=== PATIENT | male | born 1945 | race Caucasian/White ===

== ENCOUNTER 2020-03-06 13:55 | Emergency (ER) | payer MEDICARE ==
--- NOTE | 2020-03-06 13:52 | US ---
EXAMINATION TYPE: US venous doppler duplex LE LT DATE OF EXAM: 03/06/2020 1:41 PM COMPARISON: NONE CLINICAL HISTORY: M79.605 Left leg pain. SIDE PERFORMED: Left TECHNIQUE: The lower extremity deep venous system is examined utilizing real time linear array sonog benjamin with graded compression, doppler sonography and color-flow sonography. VESSELS IMAGED: Common Femoral Vein Deep Femoral Vein Greater Saphenous Vein * Femoral Vein Popliteal Vein Small Saphenous Vein * Proximal Calf Veins (* superficial vessels) Left Leg: Positive for DVT from the left CFV to the proximal calf veins IMPRESSION: Positive for DVT as noted above.
[2020-03-06 14:02] VITALS: BP 126/84; PULSE 65; RESP 18; TEMP 98.5
--- NOTE | 2020-03-06 14:47 | ED ---
General Adult HPI - General Chief complaint: Extremity Injury, Lower Stated complaint: Blood Clot Time Seen by Provider: 03/06/20 14:06 Source: patient, RN notes reviewed Mode of arrival: wheelchair Limitations: no limitations - History of Present Illness Initial comments: This is a 74-year-old male who presents from ultrasound with complaints of a blood clot left leg. He has a history of blood clots in right leg the past. He has some pain and swelling to left leg that was noted today he did obtain ultrasound does show evidence of a DVT. He denies any chest pain shots of breath fevers chills sweats or other symptoms. He states his been swelling for about 3 days. He does state he is more sedentary than usual because of the current pandemic. - Related Data Previous Rx's Medication Instructions Recorded Rivaroxaban [Xarelto] 15 mg PO BID #42 tab 03/06/20 Allergies Allergy/AdvReac Type Severity Reaction Status Date / Time codeine Allergy Nausea & Verified 03/06/20 14:02 Vomiting & Diarrhea Review of Systems ROS Statement: Those systems with pertinent positive or pertinent negative responses have been documented in the HPI. ROS Other: All systems not noted in ROS Statement are negative. Past Medical History Past Medical History: Cancer, Hyperlipidemia, Hypertension Additional Past Medical History / Comment(s): colon cancer History of Any Multi-Drug Resistant Organisms: None Reported Past Surgical History: Bowel Resection, Joint Replacement Additional Past Surgical History / Comment(s): rt knee Past Psychological History: Depression Smoking Status: Never smoker Past Alcohol Use History: None Reported Past Drug Use History: None Reported General Exam - General Exam Comments Initial Comments: This is a well-developed well-nourished awake alert oriented 3 male Limitations: no limitations General appearance: alert, in no apparent distress Head exam: Present: atraumatic, normocephalic, normal inspection Eye exam: Present: normal appearance, PERRL, EOMI. Absent: scleral icterus, conjunctival injection, periorbital swelling ENT exam: Present: normal exam, mucous membranes moist Neck exam: Present: normal inspection. Absent: tenderness, meningismus, lymphadenopathy Respiratory exam: Present: normal lung sounds bilaterally. Absent: respiratory distress, wheezes, rales, rhonchi, stridor Cardiovascular Exam: Present: regular rate, normal rhythm, normal heart sounds. Absent: systolic murmur, diastolic murmur, rubs, gallop, clicks GI/Abdominal exam: Present: soft, normal bowel sounds. Absent: distended, tenderness, guarding, rebound, rigid Extremities exam: Present: full ROM, normal capillary refill, other (Swelling noted to the left calf but no definite Homans sign or tenderness. No palpable cords.). Absent: tenderness, pedal edema, joint swelling, calf tenderness Back exam: Present: normal inspection Neurological exam: Present: alert, oriented X3, CN II-XII intact Psychiatric exam: Present: normal affect, normal mood Skin exam: Present: warm, dry, intact, normal color. Absent: rash Course Vital Signs 03/06/20 13:58 Temperature 98.5 F Pulse Rate 65 Respiratory 18 Rate Blood Pressure 126/84 O2 Sat by Pulse 98 Oximetry Medical Decision Making - Medical Decision Making I did discuss the findings with Dr. Ghosh patient was given a sample of Xarelto he will be placed on the same he is a follow-up next week for reevaluation we did discuss return parameters. - Radiology Data Radiology results: report reviewed (Did review the imaging and report patient is positive for a DVT present. Please see the Complete report), image reviewed Disposition Clinical Impression: Left leg DVT Disposition: HOME SELF-CARE Condition: Good Instructions (If sedation given, give patient instructions): Deep Vein Thrombosis (ED), Leg Edema (ED), Deep Vein Thrombosis Prevention (ED) Prescriptions: Rivaroxaban [Xarelto] 15 mg PO BID #42 tab Is patient prescribed a controlled substance at d/c from ED?: No Referrals: Marlene Ghosh MD [Primary Care Provider] - 1-2 days
== END 2020-03-06 15:15 | disposition home or self-care (01) ==
LOC: EC 13:55
DX: I82.402 Acute embolism and thrombosis of unspecified deep veins of left lower extremity (principal); Z88.5 Allergy status to narcotic agent; Z85.038 Personal history of other malignant neoplasm of large intestine; Z96.651 Presence of right artificial knee joint
CPT/HCPCS: 99283

== ENCOUNTER 2020-04-12 14:23 | Emergency (ER) | payer MEDICARE ==
[2020-04-12 14:33] VITALS: TEMP 98.3
--- NOTE | 2020-04-12 14:54 | ED ---
General Adult HPI - General Chief complaint: Urogenital Stated complaint: Blood in Urine/ L Leg Swelling Time Seen by Provider: 04/12/20 14:34 Source: patient, RN notes reviewed, old records reviewed Mode of arrival: ambulatory Limitations: no limitations - History of Present Illness Initial comments: 74-year-old male presenting with hematuria. Patient was placed on Xarelto approximately one month ago with left leg DVT. He states his leg has been swollen but has not worsened. He denies chest pain or dyspnea. He is presenting stating that approximately a week ago he had some pink urine and then yesterday had an episode of more significant bright red hematuria. Denies clots. He denies any pain with urination. He denies urinary frequency. Denies flank pain. Denies fever. No vomiting. He states he is able to pass his urine normally. no Abdominal pain. - Related Data Previous Rx's Medication Instructions Recorded Rivaroxaban [Xarelto] 15 mg PO BID #42 tab 03/06/20 Cephalexin [Keflex] 500 mg PO Q6HR 10 Days #28 cap 04/12/20 Allergies Allergy/AdvReac Type Severity Reaction Status Date / Time codeine Allergy Nausea & Verified 04/12/20 14:33 Vomiting & Diarrhea Review of Systems ROS Statement: Those systems with pertinent positive or pertinent negative responses have been documented in the HPI. ROS Other: All systems not noted in ROS Statement are negative. Past Medical History Past Medical History: Cancer, Hyperlipidemia, Hypertension Additional Past Medical History / Comment(s): colon cancer, blood clot History of Any Multi-Drug Resistant Organisms: None Reported Past Surgical History: Bowel Resection, Joint Replacement Additional Past Surgical History / Comment(s): rt knee Past Psychological History: Depression Smoking Status: Never smoker Past Alcohol Use History: None Reported Past Drug Use History: None Reported General Exam Limitations: no limitations General appearance: alert, in no apparent distress Head exam: Present: atraumatic, normocephalic Eye exam: Present: normal appearance, PERRL ENT exam: Present: normal exam Neck exam: Present: normal inspection. Absent: tenderness, meningismus Respiratory exam: Present: normal lung sounds bilaterally. Absent: respiratory distress, wheezes Cardiovascular Exam: Present: regular rate, normal rhythm GI/Abdominal exam: Present: soft. Absent: distended, tenderness, guarding Extremities exam: Present: pedal edema, other (Left leg, swollen compared to the right, history of known DVT) Back exam: Absent: CVA tenderness (R), CVA tenderness (L) Neurological exam: Present: alert, oriented X3, CN II-XII intact. Absent: motor sensory deficit Psychiatric exam: Present: normal affect, normal mood Skin exam: Present: warm, dry, intact Course Vital Signs 04/12/20 14:28 Temperature 98.3 F Pulse Rate 61 Respiratory 18 Rate Blood Pressure 176/99 O2 Sat by Pulse 98 Oximetry Medical Decision Making - Medical Decision Making 74-year-old male with hematuria. Urinalysis showing greater than 182 red cells. Urine culture pending. Patient is otherwise well-appearing. He is given close urology follow-up. He was started on an antibiotic Keflex. He is given strict return parameters and will monitor his urine closely. He will return with urinary retention. He will return with fever or new symptoms. - Lab Data Lab Results 04/12/20 Range/Units 15:07 Urine Color Red Urine Appearance Cloudy (Clear) Urine pH 5.5 (5.0-8.0) Ur Specific [place] 1.022 (1.001-1.035) Urine Protein 2+ H (Negative) Urine Glucose (UA) Negative (Negative) Urine Ketones Trace H (Negative) Urine Blood Large H (Negative) Urine Nitrite Negative (Negative) Urine Bilirubin Negative (Negative) Urine Urobilinogen 2.0 (<2.0) mg/dL Ur Leukocyte Esterase Small H (Negative) Urine RBC >182 H (0-5) /hpf Urine WBC 38 H (0-5) /hpf Urine Mucus Occasional H (None) /hpf Disposition Clinical Impression: Gross hematuria, UTI (urinary tract infection) Disposition: HOME SELF-CARE Condition: Fair Instructions (If sedation given, give patient instructions): Urinary Tract Infection in Men (ED), Hematuria (ED) Prescriptions: Cephalexin [Keflex] 500 mg PO Q6HR 10 Days #28 cap Is patient prescribed a controlled substance at d/c from ED?: No Referrals: Marlene Ghosh MD [Primary Care Provider] - 1-2 days Martir Hull MD [STAFF PHYSICIAN] - 1-2 days Time of Disposition: 16:08
[2020-04-12 15:43] LABS: Appearance,Urine Cloudy (Clear); Bilirubin,Urine Negative (Negative); Blood,Urine Large (Negative); Color,Urine Red; Glucose,Urine (UA) Negative (Negative); Ketones,Urine Trace (Negative); Leukocyte Esterase,Urine Small (Negative); Mucus,Urine Occasional /hpf; Nitrite,Urine Negative (Negative); PH, Urine 5.5 (5.0-8.0); Protein,Urine 2+ (Negative); RBC,Urine >182 /hpf (0-5); Specific Gravity,Urine 1.022 (1.001-1.035); WBC,Urine 38 /hpf (0-5)
[2020-04-12 16:46] VITALS: BP 165/72; PULSE 82; RESP 20
== END 2020-04-12 16:45 | disposition home or self-care (01) ==
LOC: EC 14:23
DX: N39.0 Urinary tract infection, site not specified (principal); Z79.01 Long term (current) use of anticoagulants; Z88.5 Allergy status to narcotic agent; Z85.038 Personal history of other malignant neoplasm of large intestine; Z96.651 Presence of right artificial knee joint; Z86.718 Personal history of other venous thrombosis and embolism
CPT/HCPCS: 81001; 87086; 99284

== ENCOUNTER → 2024-09-11 | Outpatient (CLI) | payer MEDICARE ==
--- NOTE | 2024-09-11 16:26 | US ---
EXAMINATION TYPE: US venous doppler duplex LE LT DATE OF EXAM: 09/11/2024 4:14 PM COMPARISON: 03/06/2020 CLINICAL INDICATION: Male, 79 years old with history of R22.42 SWELLING, MASS AND LUMP, LLE; Lt leg swelling x 4 years, pain on and off, hx of dvt 2020 prior US, currently on thinners TECHNIQUE: The lower extremity deep venous system is examined utilizing real time linear array sonog benjamin with graded compression, color doppler sonography, and spectral doppler. SIDE PERFORMED: Left FINDINGS: VESSELS IMAGED: Common Femoral Vein Deep Femoral Vein Greater Saphenous Vein * Femoral Vein Popliteal Vein Small Saphenous Vein * Proximal Calf Veins (* superficial vessels) Left Leg: appears negative for DVThows patency of the vessels. Spectral waveforms are within normal limits. Calf veins not well seen due to severe edema IMPRESSION: No ultrasound evidence for deep venous thrombosis. [facility], , 09/11/2024 4:23 PM
== END | disposition home or self-care (01) ==
LOC: RADUSWWP 15:58
PROVIDERS: ATTEND Internal Medicine
DX: R22.42 Localized swelling, mass and lump, left lower limb (principal); Z86.718 Personal history of other venous thrombosis and embolism